=== PATIENT | male | born 1945 | race Caucasian/White ===

== ENCOUNTER 2019-10-01 14:26 | Day surgery (SDC) | payer MEDICARE, OTHER ==
[2019-09-30 14:53] VITALS: BMI 26.9
[~2019-10-01 14:26] MED LIST: Glycopyrrolate 0.2 MG/ML 5 ML SYRINGE ONE; Lidocaine 1% PF 5 ML VIAL ONE; PROPOFOL 200 MG/20 ML VIAL ONE; Rocuronium Bromide 10 MG/ML (10ML VIAL) ONE
[2019-10-01] MEDS ORDERED: Fentanyl 100 MCG/2 ML VIAL ONE ×2 (16:13)
[2019-10-01] MEDS ORDERED: Lidocaine 1% w/Epinephrine 1:100K 20 ML VIAL ONE (16:15)
[2019-10-01 16:22] LABS: Hemoglobin 15.7 g/dL (14.0-18.0)
[2019-10-01 16:40] LABS: Anion Gap 15 mmol/L (10-20); BUN (Urea Nitrogen) 9 mg/dL (8.4-25.7); Calc. Creatinine Clearance 78 mL/min (70-130); Calcium 10.1 mg/dL (7.8-10.44); Carbon Dioxide 24 mmol/L (23-31); Chloride 104 mmol/L (98-107); Estimated GFR-MDRD 82; Glucose 77 mg/dL (83-110); Potassium 4.1 mmol/L (3.5-5.1); Sodium 139 mmol/L (136-145)
--- NOTE | 2019-10-02 12:04 | OP ---
DATE OF PROCEDURE: 10/01/2019 PREOPERATIVE DIAGNOSIS: Right cervical lymphadenopathy. POSTOPERATIVE DIAGNOSIS: Right cervical lymphadenopathy. PROCEDURES PERFORMED: Excisional biopsy of right deep cervical lymph node. ESTIMATED BLOOD LOSS: Less than 5 mL. COMPLICATIONS: None. ANESTHESIA: GETA. DESCRIPTION OF PROCEDURE: The patient was taken to the operating room and placed supine on the table. General endotracheal anesthesia was obtained by the Anesthesia Staff. The patient was then prepped and draped in standard surgical fashion. A 3-cm incision was made overlying the large right level 5 lymph node. Dissection was carried down through skin and subcutaneous tissue, and through the remnant of the platysma muscle. The lymph node was noted to be multiple lymph nodes that were matted and rock-hard. They were removed and hemostasis was obtained using the bipolar electrocautery. A small drain was placed and the subcuticular layer was closed using Monocryl stitches and then chromic gut stitches were placed in the skin. The patient tolerated the procedure well. The specimen was sent for fresh pathological analysis to rule out lymphoma. Job ID: [id number]
== END 2019-10-01 18:22 | disposition home or self-care (01) ==
LOC: SDC 14:26
PROVIDERS: ATTEND Otolaryngology Plastic Surgery within the Head & Neck
PROC: 07T10ZZ Resection of Right Neck Lymphatic, Open Approach (ICD-10-PCS; principal; 2019-10-01)
DX: R59.0 Localized enlarged lymph nodes (principal)
CPT/HCPCS: 80048; 85014; 85018; 88184; 93005; 93010; J2001; J2704; J3010